=== PATIENT | male | born 1950 | race Caucasian/White ===

== ENCOUNTER 2018-12-03 09:58 | Emergency (ER) | payer MEDICARE, OTHER ==
[~2018-12-03] VITALS: Ht 182.9 cm; Wt 96.0 kg
[2018-12-03 10:07] VITALS: BP 147/88
--- NOTE | 2018-12-03 10:41 | NUR ---
PATIENT TO CT SCAN. NO DISTRESS.
== END 2018-12-03 11:43 | disposition home or self-care (01) ==
LOC: ED 11:31
DX: S00.01XA Abrasion of scalp, initial encounter (principal); Z91.041 Radiographic dye allergy status; W01.0XXA Fall on same level from slipping, tripping and stumbling without subsequent striking against object, initial encounter; Y93.89 Activity, other specified; Y92.89 Other specified places as the place of occurrence of the external cause; Y99.8 Other external cause status
CPT/HCPCS: 70450; 99284